=== PATIENT | male | born 1960 | race Caucasian/White ===

== ENCOUNTER 2023-12-10 12:34 | Emergency (ER) | payer MEDICARE, BC ==
[~2023-12-10] VITALS: Ht 190.5 cm; Wt 99.1 kg
[2023-12-10 13:37] LABS: BASO # 0.01 K/mm3 (0.02-0.10); HEMATOCRIT 36.4 % (42.0-52.0); HEMOGLOBIN 12.5 g/dL (13.5-18.0); MEAN CELL VOLUME 91 fl (78-100); MEAN CORPUSCULAR HEMOGLOBIN 31 pg (27-31); MEAN CORPUSCULAR HGB CONC 34 g/dL (33-37); MEAN PLATELET VOLUME 9.3 fl (7.4-10.4); MONO # 0.43 K/mm3 (0.20-0.80); NEU # 5.11 K/mm3 (1.40-6.50); PLATELET COUNT 134 K/mm3 (130-400); RED BLOOD COUNT 4.02 M/mm3 (4.20-5.60); RED CELL DISTRIBUTION WIDTH 12.7 % (11.5-14.5); WHITE BLOOD COUNT 6.3 K/mm3 (4.8-10.8)
[2023-12-10 13:50] LABS: CALCIUM 9.4 mg/dL (8.3-10.5)
[2023-12-10] MEDS ORDERED: cefTRIAXone 1 G in Water For Injection,Sterile 10 ML IV ONE (14:30)
[2023-12-10] MEDS ORDERED: NS 1,000 ML IV SCH (14:30)
[2023-12-10 16:00] VITALS: BP 125/78
[2023-12-14] MEDS ORDERED: AMOXIL500 M1 PO (14:25)
== END 2023-12-10 15:59 | disposition home or self-care (01) ==
LOC: ED 12:34
PROVIDERS: Family Medicine
DX: L03.115 Cellulitis of right lower limb (principal); E11.9 Type 2 diabetes mellitus without complications; E87.6 Hypokalemia; E86.9 Volume depletion, unspecified; Z89.512 Acquired absence of left leg below knee
CPT/HCPCS: J0696; J7030